=== PATIENT | male | born 1985 | race American Indian/Alaskan Native ===

== ENCOUNTER 2017-10-11 22:17 | Emergency (ER) | payer SELFPAY | END 2017-10-12 01:00 | disposition left against medical advice (07) | LOC: ED 22:17 | DX: K08.89 Other specified disorders of teeth and supporting structures (principal); Z53.21 Procedure and treatment not carried out due to patient leaving prior to being seen by health care provider ==

== ENCOUNTER 2017-11-17 18:51 | Emergency (ER) | payer SELFPAY ==
[2017-11-17 18:57] VITALS: BP 124/68
--- NOTE | 2017-11-17 19:43 | Cat Scan Report ---
FINAL REPORT EXAM: CT HEAD/BRAIN WO CON HISTORY: RT facial numbness and drooping TECHNIQUE: Standard unenhanced CT of the head at 5.0 millimeter axial increments. PRIORS: None. FINDINGS: The ventricular system is normal in size and configuration. There is no evidence for parenchymal volume loss. There is no evidence for mass lesion, mass effect, midline shift, acute intracranial hemorrhage, or acute ischemia/ infarction. No evidence for acute skull fracture is seen. No abnormality in the overlying scalp soft tissues is seen. Visualized paranasal sinuses demonstrates opacification of several right anterior ethmoid air cells. There is a rounded focus in the inferior right maxillary sinus measuring 1.8 cm, probably a retention cyst or mucocele. IMPRESSION: Mild chronic sinusitis. No acute intracranial process noted.
[2017-11-17] MEDS ORDERED: DELTASONE PO ONE (21:27)
[2017-11-17] MEDS ORDERED: VALTREX PO ONE (21:28)
--- NOTE | 2017-11-17 21:28 | Emergency Department Report ---
ED Neuro Deficit HPI - General Chief Complaint: Neuro Symptoms/Deficit Stated Complaint: FACIAL NUMBNESS Time Seen by Provider: 11/17/17 21:12 Source: patient Mode of arrival: Ambulatory Limitations: No Limitations - History of Present Illness Initial Comments: 32-year-old -[place] male comes to the emergency room for having numbness to the right face in paralysis of the right eyebrow and lip for several days. She also reports she hasn't uneven smile. He denies any fever or chills no nausea no vomiting no lesions did have a history of chickenpox in the past. He complains some intermittent headaches on the right side difficulty in keeping his eye open. No past medical history currently takes no medication has no known drug allergies and does not have a primary care provider. -: week(s) (1) Location: right face Presenting Symptoms: Present: Weak/Paralyzed One Side History of same: No Severity: mild Improves With: none Worsens With: none On Anticoagulants: No Associated Symptoms: headaches (intermittent). denies: chest pain, cough, fever /chills, nausea/vomiting, vertigo, seizures, shortness of breath, syncope, weakness Treatments Prior to Arrival: none - Related Data Home Medications: Previous Rx's Medication Instructions Recorded Last Taken Type Cyclobenzaprine [Flexeril 10 MG 10 mg PO BID PRN #14 tablet 08/17/16 Unknown Rx TAB] Ibuprofen [Motrin 800 MG tab] 800 mg PO BID PRN #14 tablet 08/17/16 Unknown Rx predniSONE [Deltasone] 60 mg PO ONCE #7 tablet 11/17/17 Unknown Rx valACYclovir [Valtrex] 1,000 mg PO BID #14 tablet 11/17/17 Unknown Rx Allergies/Adverse Reactions: Allergies Allergy/AdvReac Type Severity Reaction Status Date / Time No Known Allergies Allergy Unverified 08/17/16 11:16 ED Review of Systems ROS: Stated complaint: FACIAL NUMBNESS Other details as noted in HPI Constitutional: denies: chills, fever Eyes: other (not able to close right eye fully) ENT: denies: ear pain, throat pain Respiratory: denies: cough, shortness of breath, wheezing Cardiovascular: denies: chest pain, palpitations Endocrine: no symptoms reported Gastrointestinal: denies: abdominal pain, nausea, diarrhea Genitourinary: denies: urgency, dysuria Musculoskeletal: denies: back pain, joint swelling, arthralgia Skin: denies: rash, lesions Neurological: headache (intermittent), paresthesias (right side of face). denies: weakness, confusion, abnormal gait, vertigo Psychiatric: denies: anxiety, depression Hematological/Lymphatic: denies: easy bleeding, easy bruising ED Past Medical Hx - Past Medical History Previous Medical History?: No - Social History Smoking Status: Never Smoker Substance Use Type: None - Medications Home Medications: Home Medications Medication Instructions Recorded Confirmed Last Taken Type Cyclobenzaprine [Flexeril 10 MG 10 mg PO BID PRN #14 tablet 08/17/16 Unknown Rx TAB] Ibuprofen [Motrin 800 MG tab] 800 mg PO BID PRN #14 tablet 08/17/16 Unknown Rx predniSONE [Deltasone] 60 mg PO ONCE #7 tablet 11/17/17 Unknown Rx valACYclovir [Valtrex] 1,000 mg PO BID #14 tablet 11/17/17 Unknown Rx ED Neuro Physical Exam - General Limitations: No Limitations General appearance: alert, in no apparent distress Suspected Stroke: No - Head Head exam: Present: atraumatic, normocephalic, normal inspection - Eye Eye exam: Present: PERRL, EOMI, nystagmus, other - Expanded Eye Exam Expanded Eyelids: Normal Inspection: Right (eyelid strength weak, right eyebrow does not raise) Pupils: Regular, Round: Bilateral, Reactive: Bilateral Sclera/Conjunctival: Normal Inspection: Bilateral, Injection: Bilateral, Hemorrhage: Bilateral, Foreign Body: Bilateral, Exudate: Bilateral - ENT ENT exam: Present: other (smile is not symmetric no elevation of right lip corner) - Neck Neck exam: Present: normal inspection - Respiratory Respiratory exam: Present: normal lung sounds bilaterally. Absent: respiratory distress - Cardiovascular Cardiovascular Exam: Present: regular rate, normal rhythm. Absent: systolic murmur, diastolic murmur, rubs, gallop - Extremities Exam Extremities exam: Present: normal inspection - Back Exam Back exam: Present: normal inspection - Neurological Exam Neurological exam: Present: alert, oriented X3 - NIHSS 1a. Level of Consciousness: alert 1b. LOC Questions: answers correctly 1c. LOC Commands: performs tasks correctly 3. Visual: no visual loss 4. Facial Palsy: partial paralysis (right side) 5b. Motor Arm Right: no drift 5a. Motor Arm Left: no drift 6a. Motor Leg Left: no drift 6b. Motor Leg Right: no drift 8. Sensory: normal 9. Best Language: no aphasia 10. Dysarthria: normal 11. Extinction/Inattention: no abnormality - Psychiatric Psychiatric exam: Present: normal affect, normal mood - Skin Skin exam: Present: warm, dry, intact, normal color. Absent: rash ED Course Vital Signs 11/17/17 18:54 Temperature 98.5 F Pulse Rate 89 Respiratory 18 Rate Blood Pressure 124/68 O2 Sat by Pulse 99 Oximetry - Radiology Data Radiology results: report reviewed FINAL REPORT EXAM: CT HEAD/BRAIN WO CON HISTORY: RT facial numbness and drooping TECHNIQUE: Standard unenhanced CT of the head at 5.0 millimeter axial increments. PRIORS: None. FINDINGS: The ventricular system is normal in size and configuration. There is no evidence for parenchymal volume loss. There is no evidence for mass lesion, mass effect, midline shift, acute intracranial hemorrhage, or acute ischemia/ infarction. No evidence for acute skull fracture is seen. No abnormality in the overlying scalp soft tissues is seen. Visualized paranasal sinuses demonstrates opacification of several right anterior ethmoid air cells. There is a rounded focus in the inferior right maxillary sinus measuring 1.8 cm, probably a retention cyst or mucocele. IMPRESSION: Mild chronic sinusitis. No acute intracranial process noted. Transcribed By: [facility] Dictated By: HUAN VAUGHAN MD Electronically Authenticated By: HUAN VAUGHAN MD Signed Date/Time: 11/17/171938 - Medical Decision Making Patient has been evaluated by this provider fast track. Neuro exam is stable. I discussed with patient this is most likely Silva's palsy and treatment is steroids high dose between 60 and 80 mg daily as well as a antiviral medication such as valacyclovir 1000 mg twice a day for 1 week to discussed the patient I will refer him to neurology. Patient verbalized understanding. First dose of medication ordered. CT was completed with normal examination she has has now chronic sinus issues. Artificial tears are available without a prescription in liquid, gel, and ointment forms Critical care attestation.: If time is entered above; I have spent that time in minutes in the direct care of this critically ill patient, excluding procedure time. ED Disposition Clinical Impression: Right-sided Silva's palsy Disposition: DC-01 TO HOME OR SELFCARE Is pt being admited?: No Does the pt Need Aspirin: No Condition: Stable Additional Instructions: Please take medication as prescribed. Artificial tears are available without a prescription in liquid, gel, and ointment forms if you're having any dry eyes. If symptoms persist or gets worse please follow up with neurology I have listed one below. Prescriptions: predniSONE [Deltasone] 60 mg PO ONCE #7 tablet valACYclovir [Valtrex] 1,000 mg PO BID #14 tablet Referrals: PRIMARY CARE, [Primary Care Provider] - 3-5 Days EBONY COLLAZO [PHYSICIAN [employer]UDENT] - 3-5 Days STEPHANIE DAVIS MD [Staff] - 3-5 Days JAZLYN ELISE MD [Staff Physician] - 3-5 Days Forms: Work/School Release Form(ED), Accompanied Note
== END 2017-11-17 22:07 | disposition home or self-care (01) ==
LOC: ED 18:51
DX: G51.0 Bell's palsy (principal)
CPT/HCPCS: 70450; 99283; J7512